=== PATIENT | female | born 1980 | race Two or more races ===

== ENCOUNTER 2025-02-16 20:41 | Emergency (ER) | payer OTHER ==
[~2025-02-16] VITALS: Ht 160 cm; Wt 81.0 kg
--- NOTE | 2025-02-16 20:57 | ECG ---
[facility] Test Date: 2025-02-16 Test Time: 20:50:06 Pat Name: SHAISTA KENNEDY Department: ED Room: Gender: F [employer]: : 1980 Requested By: EMERGENCY EMERGENCY Order Number: [id number] Reading MD: German Miranda Measurements Intervals [place] Rate: 77 P: 68 [place]: 153 QRS: 17 QRSD: 99 T: 62 QT: 411 QTc: 466 Interpretive Statements Sinus rhythm Low voltage, precordial leads Electronically Signed On 02-17-2025 19:18:53 PDT by German Miranda Please click the below link to view image of tracing.
--- NOTE | 2025-02-16 21:53 | ECG ---
[facility] Test Date: 2025-02-16 Test Time: 21:50:42 Pat Name: SHAISTA KENNEDY Department: ED Room: Gender: F Transitional Care Nurse: LUDWIG : 1980 Requested By: EMERGENCY EMERGENCY Order Number: [id number] Reading MD: German Miranda Measurements Intervals [place] Rate: 72 P: 46 [place]: 141 QRS: -2 QRSD: 99 T: 57 QT: 392 QTc: 430 Interpretive Statements Sinus rhythm Low voltage, precordial leads Borderline T abnormalities, anterior leads Electronically Signed On 02-17-2025 19:18:58 PDT by German Miranda Please click the below link to view image of tracing.
--- NOTE | 2025-02-16 22:20 | DVH ---
CHEST RADIOGRAPH Indication: cp Technique: Single frontal view of the chest was obtained Comparison: None FINDINGS: Lines and Tubes: None Lungs: No focal consolidation. Pleura: No effusion. No pneumothorax. Cardiomediastinal contours: Unremarkable Bones: No acute osseous abnormality. IMPRESSION: 1. No acute cardiopulmonary disease.
[2025-02-16 22:29] LABS: Hematocrit 35.2 % (36.0-46.0); Hemoglobin 11.6 g/dL (12.2-16.2); Mean Corpuscular Hemoglobin 24.3 pg (28.0-32.0); Mean Corpuscular Volume 73.3 fL (80.0-100.0); Nucleated Red Blood Cells % 0.1 %
[2025-02-16 22:38] LABS: Potassium 4.2 mmol/L (3.5-5.1); Sodium 143 mmol/L (136-145)
[2025-02-16 22:39] LABS: Anion Gap 10 (5-15); Calcium 9.1 mg/dL (8.7-10.4); Carbon Dioxide 26 mmol/L (20-31)
[2025-02-16 22:44] LABS: BUN/Creatinine Ratio 6.0 (10.0-20.0); Glucose 95 mg/dL (74-106)
[2025-02-16 22:45] LABS: Blood Urea Nitrogen 5 mg/dL (9-23); Chloride 107 mmol/L (98-107)
[2025-02-16] MEDS: ACETAMINOPHEN 500 MG TAB or CAP PO ONE (22:45)
--- NOTE | 2025-02-16 22:50 | ED.PDOC ---
History of Present Illness HPI Comments 44-year-old female who presents with chief complaint of chest pain, that radiates to her jaw and back. Pain is reported to have develop after to discipline, earlier, last night. Pain is a 7/10 in severity and is dull and squeezing quality. Patient also endorses on feeling lightheaded and weak. No endorsement of any recent injuries, strenuous activities, stressors, or further pertinent history or events at this time. Denial of any further acute symptoms. REVIEW OF SYSTEMS: General: No fever, no chills, HEENT: Jaw pain No neck pain, no blurred vision Cardiac: Chest pain. Lightheadedness. No palpitations. Lungs: No shortness of breath, GI: No abdominal pain, no vomiting Musculoskeletal: No joint pain , back pain Skin: No rash, no wound Neuro: Weakness. No headache, no dizziness, no syncope PHYSICAL EXAM: General: Awake, alert and oriented. No acute distress. Skin: Skin in warm, dry and intact. Appropriate color for ethnicity. HEENT: The head is normocephalic and atraumatic. Conjunctivae are clear without exudates or hemorrhage. Sclera is non-icteric. EOM are intact. No signs of nystagmus. Eyelids are normal in appearance without swelling or lesions. Oral mucosa is pink and moist Neck: The neck is supple with normal range of motion. No JVD. Cardiac: Heart rate and rhythm are normal. No murmurs, gallops, or rubs are auscultated. Respiratory: No signs of respiratory distress. Lung sounds are clear in all lobes bilaterally without rales, rhonchi, or wheezes. Abdominal: Abdomen is soft, non-tender without distention, guarding or rigidity. Bowel sounds are present and normoactive in all four quadrants. Extremities: Upper and lower extremities are atraumatic in appearance without deformity or edema. Musculoskeletal: Left anterior chest wall tenderness. Patient reports chest wall pain worsening with movement of the left arm. Neurological: The patient is awake, alert and oriented to person, place, and time with normal speech. Speech is clear. There is no facial asymmetry. Psychiatric: Appropriate mood and affect. Good judgement and insight. Chief Complaint: Chest Pain Time Seen by MD: 21:53 Reviewed Notes: Nurses Notes, Medications, Allergies Allergies: Coded Allergies: Prochlorperazine (Verified Allergy, Unknown, 02/16/25) Information Source: Patient Mode of Arrival: Ambulatory Past Medical History PAST MEDICAL HISTORY: High Lipids Surgical History: Denies all surgeries [employer] History: Denies all [employer] Hx Social History Smoker: Non-Smoker Alcohol: Denies ETOH Use Drugs: Denies Drug Use Lives In: Home Was a procedure done? Was a procedure done?: No EKG EKG #1: Pulse Rate (adult): 77 [place]: Normal Cardiac Rhythm: NSR Block: None Hypertrophy: None ST: Normal Comments No STEMI EKG #2: Pulse Rate (adult): 72 [place]: Normal Cardiac Rhythm: NSR Block: None Hypertrophy: None ST: Normal Comments No STEMI EKG #3: Pulse Rate (adult): 68 [place]: Normal Cardiac Rhythm: NSR Block: None Hypertrophy: None ST: Normal Comments No STEMI Differential Dx Considerations may include: Differential diagnoses considered include acute ischemic coronary syndrome, aortic dissection, cardiac tamponade, mediastinitis, pulmonary embolus, pn eumothorax, tension pneumothorax, esophageal rupture, coronary artery vasospasm, myocarditis, pericarditis, pneumonia, pulmonary edema, esophageal tear, pancreatitis, aortic stenosis, dilated cardiomyopathy, hypertrophic cardiomyopathy, mitral valve prolapse, malignancy, pleuritis, pneumomediastinum, primary pulmonary hypertension, cholecystitis, esophageal spasm, esophagus, gastritis, GERD, peptic ulcer disease, costochondritis, fibromyalgia, rib fracture, herpes zoster, radicular syndromes, thoracic outlet syndrome, somatization. X-Ray, Labs, Meds, VS Vital Signs Date Time Temp Pulse Resp B/P (MAP) Pulse Ox O2 Delivery O2 Flow Rate FiO2 02/17/25 03:26 68 02/17/25 01:21 97.7 76 18 142/61 (88) 100 97.7 02/17/25 01:21 76 02/16/25 23:46 68 02/16/25 21:50 72 02/16/25 21:00 97.8 89 20 145/91 97 97.8 02/16/25 20:50 77 Lab Test 02/16/25 23:41 02/16/25 22:06 Range/Units Troponin I High Sensitivity < 3 L < 3 L </=34 ng/L White Blood Count 6.1 4.4-10.8 10^3/uL Red Blood Count 4.79 4.0-5.20 10^6/uL Hemoglobin 11.6 L 12.2-16.2 g/dL Hematocrit 35.2 L 36.0-46.0 % Mean Corpuscular Volume 73.3 L 80.0-100.0 fL Mean Corpuscular Hemoglobin 24.3 L 28.0-32.0 pg Mean Corpuscular Hemoglobin Concent 33.1 32.0-36.0 g/dL Red Cell Distribution Width 17.5 H 11.8-14.3 % Platelet Count 421 140-450 10^3/uL Mean Platelet Volume 6.8 L 6.9-10.8 fL Neutrophils (%) (Auto) 55.7 37.0-80.0 % Lymphocytes (%) (Auto) 35.0 10.0-50.0 % Monocytes (%) (Auto) 6.4 0.0-12.0 % Eosinophils (%) (Auto) 1.9 0.0-7.0 % Basophils (%) (Auto) 1.0 0.0-2.0 % Neutrophils # (Auto) 3.4 1.6-8.6 10 ^3/uL Lymphocytes # (Auto) 2.1 0.4-5.4 10 ^3/uL Monocytes # (Auto) 0.4 0-1.3 10 ^3/uL Eosinophils # (Auto) 0.1 0-0.8 10 ^3/uL Basophils # (Auto) 0.1 0-0.2 10 ^3/uL Nucleated Red Blood Cells 0.1 % Sodium Level 143 136-145 mmol/L Potassium Level 4.2 3.5-5.1 mmol/L Chloride Level 107 98-107 mmol/L Carbon Dioxide Level 26 20-31 mmol/L Anion Gap 10 5-15 Blood Urea Nitrogen 5 L 9-23 mg/dL Creatinine 0.84 0.550-1.02 mg/dL Glomerular Filtration Rate Calc 87 >90 mL/min BUN/Creatinine Ratio 6.0 L 10.0-20.0 Serum Glucose 95 74-106 mg/dL Calcium Level 9.1 8.7-10.4 mg/dL B-Type Natriuretic Peptide 24.96 0-100 pg/mL [facility] [id number] [facility] [address] Ph: [phone] DIAGNOSTIC IMAGING Diagnostic Imaging Report : [id number] Signed PATIENT: SHAISTA KENNEDY: [id number] UNIT: [id number] : 1980 LOC: ER ROOM / BED: / AGE / SEX: 44 / F ADM STATUS: REG ER SERVICE 52 ORDERING PHYSICIAN: BRANT SMITH MD PROCEDURE(s): CXR1 - CHEST XRAY 1 VIEW REASON: cp ORDER NUMBER(s): [id number], ACCESSION NUMBER(s): [id number] CHEST RADIOGRAPH Indication: cp Technique: Single frontal view of the chest was obtained Comparison: None FINDINGS: Lines and Tubes: None Lungs: No focal consolidation. Pleura: No effusion. No pneumothorax. Cardiomediastinal contours: Unremarkable Bones: No acute osseous abnormality. IMPRESSION: 1. No acute cardiopulmonary disease. ATED BY: JOLENE NYE Jr., DO DICTATED DATE/TIME: 02/16/252216 SIGNED BY: JOLENE NYE Jr., SIGNED DATE/TIME: 02/16/252216 CC: Time of 1ST Reevaluation: 22:23 Reevaluation 1ST: Unchanged Patient Education/Counseling: Treatment, Need For Follow Up Family Education/Counseling: No Family Present SEPSIS Sepsis Screen Date sepsis recognized/suspect: Feb 16, 2025 Time Sepsis recognized/suspect: 2103 Recent Procedure: No On Antibiotic Therapy: No Respiratory Rate >20: No Heart Rate >90: No Temp<36 C (96.8 F) or >38.3 C: No SBP <90 or MAP <65 mmHG: No New Acute Mental Status Change: No Is the patient on CPAP, BIPAP,: No Physician Orders Chest Xray 1 View (02/16/25 21:53) Communications Instructor (02/16/25 ) Vital Signs Date Time Temp Pulse Resp B/P (MAP) Pulse Ox O2 Delivery O2 Flow Rate FiO2 02/17/25 03:26 68 02/17/25 01:21 97.7 76 18 142/61 (88) 100 97.7 02/17/25 01:21 76 02/16/25 23:46 68 02/16/25 21:50 72 02/16/25 21:00 97.8 89 20 145/91 97 97.8 02/16/25 20:50 77 Laboratory Tests Test 02/16/25 22:06 White Blood Count 6.1 10^3/uL (4.4-10.8) Departure 1 Departure Time of Disposition: 00:46 Impression: Primary Impression: Chest pain Disposition: 01 HOME / SELF CARE / HOMELESS Condition: Stable Additional Instructions: ED DISCHARGE INSTRUCTIONS Instructions: Please read all instructions provided in this packet carefully. Although you have been discharged from the Emergency Department, this does not mean that you have a "clean bill of health". No definitive diagnosis for your symptoms has been made today. It is possible that you are in the process of dev eloping a serious illness. This is why you must return to the ED without fail if any new or worsening symptoms (especially if your symptoms include chest pain, trouble breathing, abdominal pain, fever, headache, confusion, trouble seeing, or trouble walking) It is also very important that you see a primary care provider (PCP) within the next 1-3 days to follow up. If you are unable to get an appointment, return to the ED for re-evaluation. CHEST PAIN EDUCATION There are many things that can cause chest pain. Some are not serious and will get better on their own in a few days. But some kinds of chest pain need more testing and treatment. Your doctor may have recommended a follow-up visit in the next few days. If you are not getting better, you may need more tests or treatment. Even though your doctor has released you, you still need to watch for any problems. The doctor carefully checked you, but sometimes problems can develop later. If you have new symptoms or if your symptoms do not get better, get [facility] care right away. If you have worse or different chest pain or pressure that lasts more than 5 minutes or you passed out (lost consciousness), call 911 or seek other emergency help right away. A medical visit is only one step in your treatment. Even if you feel better, you still need to do what your doctor recommends, such as going to all suggested follow-up appointments and taking medicines exactly as directed. This will help you recover and help prevent future problems. How can you care for yourself at home? Rest until you feel better. Take your medicine exactly as prescribed. Call your doctor if you think you are having a problem with your medicine. Do not drive after taking a prescription pain medicine. When should you call for help? Call 911 if: You passed out (lost consciousness). You have severe difficulty breathing. You have symptoms of a heart attack. These may include: Chest pain or pressure, or a strange feeling in your chest. Sweating. Shortness of breath. Nausea or vomiting. Pain, pressure, or a strange feeling in your back, neck, jaw, or upper belly or in one or both shoulders or arms. Lightheadedness or sudden weakness. A fast or irregular heartbeat. After you call 911, the temper mill operator may tell you to chew 1 adult-strength or 2 to 4 low-dose aspirin. Wait for an ambulance. Do not try to drive yourself. Call your doctor now or seek immediate medical care if: You have any trouble breathing. You have new or different chest pain. You are dizzy or lightheaded, or you feel like you may faint. Watch closely for changes in your health, and be sure to contact your doctor if you do not get better as expected. Current as of: December 27, 2023 Author: [employer] Staff? Comments 44-year-old female with chest pain. EKG negative for signs of ischemia. High sensitivity troponin negative. CXR shows no acute process. Presentation not suggestive of acute coronary syndrome, pulmonary embolism or aortic dissection. Patient improved at time of discharge. Patient has not been hypoxic, in respiratory distress or dyspneic during the ED observation. Patient able to ambulate without difficulty. Patient felt stable for discharge to follow up with PCP promptly. Patient advised to return to the ED with any new, worsening or concerning symptoms or inability to follow up with PCP. Critical Care Note Critical Care Time?: No Stability Stability form required: No Heart Score Heart Score: Heart Score Response (Comments) Value History Slightly Suspicious 0 EKG Normal 0 Age <45 0 Risk Factors 1 or 2 risk factors 1 Troponin Normal limit 0 Total 1 I personally scribed for BRANT SMITH MD ([email or web address]) on 02/16/25 at 22:50. Electronically submitted by Ashish Jones ([email or web address]). I personally scribed for BRANT SMITH MD ([email or web address]) on 02/17/25 at 03:26. Electronically submitted by Ashish Jones ([email or web address]). BRANT SMITH MD Feb 16, 2025 22:50
--- NOTE | 2025-02-16 23:48 | ECG ---
[facility] Test Date: 2025-02-16 Test Time: 23:46:33 Pat Name: SHAISTA KENNEDY Department: ED Room: Gender: F [employer]: soumya : 1980 Requested By: EMERGENCY EMERGENCY Order Number: [id number] Reading MD: German Miranda Measurements Intervals [place] Rate: 68 P: 36 [place]: 146 QRS: 6 QRSD: 109 T: 56 QT: 430 QTc: 458 Interpretive Statements Sinus rhythm Low voltage, precordial leads Borderline T abnormalities, anterior leads Baseline wander in lead(s) V6 Electronically Signed On 02-17-2025 19:19:03 PDT by German Miranda Please click the below link to view image of tracing.
[2025-02-17 01:21] VITALS: BP 142/61; RESP 18; TEMP 97.7; O2SAT 100
[2025-02-17 03:26] VITALS: PULSE 68
== END 2025-02-17 01:21 | disposition home or self-care (01) ==
LOC: ER 20:41
DX: R07.89 Other chest pain (principal); E78.5 Hyperlipidemia, unspecified
CPT/HCPCS: 36415; 71045; 80048; 83880; 84484; 85025; 93005